=== PATIENT | female | born 1975 | race Two or more races ===

== ENCOUNTER 2017-10-07 20:51 | Emergency (ER) | payer OTHER ==
[2017-10-07] MEDS: HYDROcodone/APAP 5/325MG 1 TAB TABLET PO (23:53)
== END 2017-10-08 00:16 | disposition home or self-care (01) ==
LOC: ER 10-08 00:16
DX: M17.11 Unilateral primary osteoarthritis, right knee (principal)
CPT/HCPCS: 29505; 73562; 99284-25

== ENCOUNTER 2018-10-22 17:13 | Emergency (ER) | payer OTHER ==
[~2018-10-22] VITALS: Ht 157.5 cm; Wt 77.1 kg
[~2018-10-22 17:13] MED LIST: MELO15TA23 PO; TRAM50TA PO
[2018-10-22 17:38] VITALS: BP 136/72
[2018-10-22] MEDS ORDERED: ORPH100T PO (17:50)
[2018-10-22] MEDS ORDERED: METH4TAB2 PO (17:50)
--- NOTE | 2018-10-22 17:50 | PHYS DOC ---
Past Medical History Past Medical History: No Pertinent History (KATIA HUSSEIN APRN) Past Surgical History: Knee Replacement, Other Additional Past Surgical Histo: RIGHT KNEE (KATIA HUSSEIN APRN) Alcohol Use: Occasionally Drug Use: None (KATIA HUSSEIN APRN) Adult General Chief Complaint Chief Complaint: BACK PAIN - NO INJURY HPI HPI Patient is a 43 year old female who presents to the ED today complaining of 8 out of 10 sharp intermittent bilateral low back pain radiates into the right lower extremity that has been going on since October 11, 2018. Patient denies any known injury. Denies any loss of bowel bladder function. She is also complaining of chronic right knee pain rated at 8 out of 10. She states her back pain and knee pain exacerbated at work where she has to bend and stand almost 1200 times per shift. 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 She states she followed up with her own PCP on October 13, 2018 for some medications including meloxicam. She states the medications are not helping as much. He states today she was at work and the pain got worse. (KATIA HUSSEIN APRN) Review of Systems Review of Systems Constitutional: Denies fever or chills [] GI: Denies abdominal pain, nausea, vomiting, bloody stools or diarrhea [] : Denies dysuria or hematuria [] Musculoskeletal: Reports low back pain and right knee pain Integument: Denies rash or skin lesions [] Neurologic: Denies headache, focal weakness or sensory changes [] All other systems were reviewed and found to be within normal limits, except as documented in this note. (KATIA HUSSEIN APRN) Current Medications Current Medications Current Medications Medications (Trade) Dose Ordered Sig/Frank Start Time Stop Time Status Last Admin Dose Admin Diazepam (Valium) 5 mg 1X ONCE 10/22/18 18:15 10/22/18 18:16 DC 10/22/18 18:13 5 MG Ketorolac Tromethamine (Toradol Im) 60 mg 1X ONCE 10/22/18 18:15 10/22/18 18:16 DC 10/22/18 18:13 60 MG Morphine Sulfate (Morphine Sulfate) 5 mg 1X ONCE 10/22/18 18:15 10/22/18 18:16 DC 10/22/18 18:13 5 MG Prednisone (Prednisone) 60 mg 1X ONCE 10/22/18 18:15 10/22/18 18:16 DC 10/22/18 18:13 60 MG (HU KOLB DO) Allergies Allergies Allergies Coded Allergies Type Severity Reaction Last Updated Verified No Known Drug Allergies 10/07/17 No (HU KOLB DO) Physical Exam Physical Exam Constitutional: Well developed, well nourished, no acute distress, non-toxic appearance. [] Abdomen: Bowel sounds normal, soft, no tenderness, no masses, no pulsatile masses. [] Skin: Warm, dry, no erythema, no rash. [] Back: No tenderness to bilateral lower lumbar spine, no midline cervical spine tenderness, no CVA tenderness. Positive straight leg raise to the right lower extremity at approximately 30. Extremities: No tenderness, no cyanosis, no clubbing, ROM intact, no edema. Varicose veins noted bilaterally the lower extremities, negative Homans sign bilaterally. Neurologic: Alert and oriented X 3, normal motor function, normal sensory function, no focal deficits noted. [] Psychologic: Affect normal, judgement normal, mood normal. [] (KATIA HUSSEIN APRN) Current Patient Data Vital Signs Vital Signs Date Time Temp Pulse Resp B/P (MAP) Pulse Ox O2 Delivery O2 Flow Rate FiO2 10/22/18 17:38 97.7 97 18 136/72 (93) 97 Room Air 97.7 (HU KOLB DO) EKG EKG [] (KATIA HUSSEIN APRN) Radiology/Procedures Radiology/Procedures [] (KATIA HUSSEIN APRN) Course & Med Decision Making Course & Med Decision Making Pertinent Labs and Imaging studies reviewed. (See chart for details) This is a 43-year-old female patient presenting to the ED today with low back pain since October 11, 2018, also complaining of chronic right knee pain, low back pain radiates to the right lower extremity, no known injury. Spoke to patient about radiology studies including x-rays. Patient refuses radiology studies. He was given pain medicine in the ED. Will be discharged with Norflex, and Medrol Dosepak, instructed to continue taking meloxicam. (KATIA HUSSEIN APRN) Dragon Disclaimer Dragon Disclaimer This electronic medical record was generated, in whole or in part, using a voice recognition dictation system. (KATIA HUSSEIN APRN) Departure Departure Impression: Primary Impression: Low back pain Additional Impressions: Sciatica, right side Chronic knee pain Disposition: HOME, SELF-CARE Condition: STABLE Referrals: NO PCP (PCP) MARK LOMELI MD Follow-up in 1-2 weeks Patient Instructions: Back Pain, Adult, Sciatica Additional Instructions: You were evaluated in the emergency room for back pain with sciatica and chronic knee pain. Please continue following up with your primary care doctor. Take the prescribed medications as ordered. Continue taking meloxicam for your symptoms. Scripts Orphenadrine Citrate (ORPHENADRINE CITRATE) 100 Mg Tablet.er 1 TAB PO BID, #20 TAB 0 Refills Prov: KATIA HUSSEIN ADEEL 10/22/18 Methylprednisolone (MEDROL) 4 Mg Tab.ds.pk 1 PKG PO UD, #1 PKG Prov: KATIA HUSSEIN ADEEL 10/22/18 Attending Signature Attending Signature I have reviewed the PA/CERTIFIED RESIDENTIAL MEDICATION AIDE's note and plan of care. I was available for consultation as needed during the patient's visit in the emergency department. I agree with the clinical impression, plan, and disposition. (HU KOLB DO) Problem Qualifiers Primary Impression: Low back pain Chronicity: acute Back pain laterality: bilateral Sciatica presence: with sciatica Sciatica laterality: sciatica of right side Qualified Codes: M54.41 - Lumbago with sciatica, right side Additional Impressions: Chronic knee pain Laterality: right Qualified Codes: M25.561 - Pain in right knee; G89.29 - Other chronic pain JOVITAKATIA DENIS Oct 22, 2018 17:50 HU KOLB DO Oct 23, 2018 03:28
[2018-10-22] MEDS ORDERED: MORPHINE SULFATE 10 MG/ML VIAL. IM ONE (18:15)
[2018-10-22] MEDS ORDERED: predniSONE 20 MG TABLET PO ONE (18:15)
[2018-10-22] MEDS ORDERED: diazePAM 5 MG TABLET PO ONE (18:15)
[2018-10-22] MEDS ORDERED: KETOROLAC 60 MG/2 ML VIAL. IM ONE (18:15)
== END 2018-10-22 18:18 | disposition home or self-care (01) ==
LOC: ER 17:13
DX: M54.41 Lumbago with sciatica, right side (principal); G89.29 Other chronic pain; M25.561 Pain in right knee; Z96.651 Presence of right artificial knee joint
CPT/HCPCS: 96372; 99284; J1885; J2270; J7512